=== PATIENT | female | born 1930 | race Caucasian/White ===

== ENCOUNTER 2018-03-27 22:59 | Outpatient (CLI) | payer MEDICARE, OTHER | END 2018-03-27 23:00 | disposition critical access hospital (66) | LOC: EMS 22:59 | PROVIDERS: ATTEND Surgery | DX: R46.4 Slowness and poor responsiveness (principal); R53.1 Weakness; R53.83 Other fatigue; R03.1 Nonspecific low blood-pressure reading | CPT/HCPCS: A0425; A0427 ==

== ENCOUNTER 2018-03-27 23:21 | Emergency (ER) | payer MEDICARE, OTHER ==
--- NOTE | 2018-03-27 23:50 | ED Physician Documentation ---
History of Present Illness - Stated complaint Stated Complaint: POSS SEPSIS, CHF - Chief complaint Chief Complaint: General - History obtained from History obtained from: Family, Other (patient cannot contribute to HPI/ROS due to AMS) - History of Present Illness Timing: Today Pain level now: 0 Improved by: no ameliorating factors Worsened by: no exacerbating factors Associated symptoms: AMS, cough - Additonal information Additional information: patient is visiting family on [place] (patient lives in [place]), has been here for 1 week. Family provides HPI (patient's daughter and her son-in-law); they say that patient had been in her usual state of health (AAOx3 and ambulatory with walker and occasionally with further assistance from them) until morning of 03/27, approximately 10 AM, when patient was c/o fatigue and wanted to lie down and take a nap. Family says this is unusual for patient. Patient slept through most of the day and tonight family noticed that patient seemed lethargic, difficult to wake. They also note that she has been coughing since this afternoon. Review of Systems Unable to obtain: Other (limited to information family can provide due to AMS) Constitutional: reports: Fever (temperature at home this evening was between 102 -103 (family cannot recall specifically)), Fatigue Respiratory: reports: Cough GI: denies: Vomiting Neurologic: reports: Generalized weakness, Altered mental status PD PAST MEDICAL HISTORY - Past Medical History Past Medical History: Yes Cardiovascular: Congestive heart failure, Hypertension, Deep vein thrombosis Respiratory: COPD, Pneumonia Neuro: TIA : Incontinence Musculoskeletal: Fatigue, Chronic back pain - Past Surgical History Past Surgical History: Yes General: Appendectomy Ortho: Spine surgery - Present Medications Home Medications: Ambulatory Orders Medication Instructions Recorded Confirmed Albuterol 2 puffs INH Q4H PRN 03/28/18 Ascorbic Acid [Vitamin C] 500 mg PO DAILY 03/28/18 Calcium Carbonate/Vitamin D3 600 mg PO DAILY 03/28/18 [Calcium 600-Vit D3 400 Tablet] Diltiazem HCl [Diltiazem 12Hr ER] 100 mg PO DAILY 03/28/18 Doxepin [SINEquan] 50 mg PO DAILY 03/28/18 Furosemide [Lasix] 40 mg PO DAILY 03/28/18 Gabapentin 7 cap PO DAILY 03/28/18 Potassium Chloride 10 meq PO DAILY 03/28/18 Rivaroxaban [Xarelto] 20 mg PO DAILY 03/28/18 traZODone [Desyrel] 50 mg PO Q6HR PRN 03/28/18 - Allergies Allergies/Adverse Reactions: Allergies Allergy/AdvReac Type Severity Reaction Status Date / Time No Known Drug Allergies Allergy Verified 03/27/18 23:31 - Social History Does the pt smoke?: No Smoking Status: Never smoker Does the pt drink ETOH?: No Does the pt have substance abuse?: No - Immunizations Immunizations are current?: Yes Immunizations: TDAP >10years/unknown - POLST Patient has POLST: No PD ED PE NORMAL - Vitals Vital signs reviewed: Yes - General General: No acute distress, Well developed/nourished - HEENT HEENT: PERRL, EOMI, Other (dry mucous membranes) - Neck Neck: Supple, no meningeal sign - Cardiac Cardiac: No murmur - Respiratory Respiratory: No respiratory distress - Abdomen Abdomen: Soft, Non tender, Non distended - Derm Derm: Normal color, Warm and dry - Neuro Eye Opening: To Voice (briefly opens eyes with repeated verbal stimuli) Motor: Obeys Commands Verbal: Oriented (quietly but accurately answers orientation questions) GCS Score: 14 PD ED PE EXPANDED - General General: Lethargic - Cardiac Cardiac: Tachy, Irregularly irregular - Respiratory Respiratory: Rhonchi (R>L, mid/lower lung brody), Decreased breath sounds ( right base). No: Wheezing - Extremities Extremities: Pedal edema bilateral (trace bipedal) Results - Vitals Vitals: Vital Signs - 24 hr 03/27/18 03/27/18 03/28/18 23:22 23:44 00:21 Temperature 37.7 C H Heart Rate 132 H 135 H 125 H Respiratory 12 30 H 29 H Rate Blood Pressure 100/65 89/60 L 93/66 O2 Saturation 94 95 96 03/28/18 03/28/18 03/28/18 00:27 01:02 01:36 Temperature Heart Rate 127 H 115 H 109 H Respiratory 20 25 H 30 H Rate Blood Pressure 97/65 91/60 97/65 O2 Saturation 97 98 95 03/28/18 03/28/18 03/28/18 02:01 02:34 03:04 Temperature 36.5 C Heart Rate 99 99 105 H Respiratory 30 H 29 H 21 Rate Blood Pressure 91/56 L 96/64 92/58 L O2 Saturation 91 L 95 90 L 03/28/18 03/28/18 03/28/18 03:05 03:32 03:48 Temperature Heart Rate 105 H 100 95 Respiratory 34 H 34 H 34 H Rate Blood Pressure 92/58 L 99/64 95/59 L O2 Saturation 93 95 92 Oxygen O2 Source Nasal cannula Oxygen Flow Rate 4 - EKG (time done) No standard instances Rate: Tachy (137) Rhythm: Atrial fibrillation Reading: Normal QRS: Normal Ischemia: Normal ST segments - Labs Labs: Laboratory Tests 03/27/18 03/27/18 03/27/18 23:55 23:55 23:55 WBC 14.4 H RBC 4.08 L Hgb 13.6 Hct 40.9 MCV 100.3 H MCH 33.4 H MCHC 33.3 RDW 17.4 H Plt Count 156 MPV 8.9 Neut # 12.9 H Lymph # 0.7 L Beckham # 0.7 Eos # 0.0 Baso # 0.1 Absolute Nucleated RBC 0.00 Nucleated RBC % 0.0 PT 25.4 H INR 2.3 H APTT 32.1 Bld Gas Analysis Time Sample Site ABG pH ABG pCO2 ABG pO2 ABG HCO3 ABG Total CO2 ABG O2 Saturation ABG Base Excess Harsha Test O2 Delivery Device O2 Liters/Min Sodium 139 Potassium 4.4 Chloride 103 Carbon Dioxide 28 Anion Gap 8.0 BUN 19 Creatinine 1.3 H Estimated GFR (MDRD) 39 L Glucose 127 H Lactic Acid Calcium 8.7 Total Bilirubin 0.9 AST 21 ALT 10 Alkaline Phosphatase 108 Troponin I B-Natriuretic Peptide Total Protein 6.9 Albumin 3.5 Globulin 3.4 Albumin/Globulin Ratio 1.0 Lipase 13 L Urine Color Urine Clarity Urine pH Ur Specific Bishop Urine Protein Urine Glucose (UA) Urine Ketones Urine Occult Blood Urine Nitrite Urine Bilirubin Urine Urobilinogen Ur Leukocyte Esterase Ur Microscopic Review Urine Culture Comments 03/27/18 03/27/18 03/28/18 23:55 23:55 00:01 WBC RBC Hgb Hct MCV MCH MCHC RDW Plt Count MPV Neut # Lymph # Beckham # Eos # Baso # Absolute Nucleated RBC Nucleated RBC % PT INR APTT Bld Gas Analysis Time Sample Site ABG pH ABG pCO2 ABG pO2 ABG HCO3 ABG Total CO2 ABG O2 Saturation ABG Base Excess Harsha Test O2 Delivery Device O2 Liters/Min Sodium Potassium Chloride Carbon Dioxide Anion Gap BUN Creatinine Estimated GFR (MDRD) Glucose Lactic Acid 2.4 H Calcium Total Bilirubin AST ALT Alkaline Phosphatase Troponin I < 0.04 B-Natriuretic Peptide 267 H Total Protein Albumin Globulin Albumin/Globulin Ratio Lipase Urine Color Urine Clarity Urine pH Ur Specific Bishop Urine Protein Urine Glucose (UA) Urine Ketones Urine Occult Blood Urine Nitrite Urine Bilirubin Urine Urobilinogen Ur Leukocyte Esterase Ur Microscopic Review Urine Culture Comments 03/28/18 03/28/18 00:18 02:13 WBC RBC Hgb Hct MCV MCH MCHC RDW Plt Count MPV Neut # Lymph # Beckham # Eos # Baso # Absolute Nucleated RBC Nucleated RBC % PT INR APTT Bld Gas Analysis Time 0213 Sample Site RIGHT RADIAL ABG pH 7.40 ABG pCO2 44 ABG pO2 59 L ABG HCO3 26.6 H ABG Total CO2 28.0 ABG O2 Saturation 90 L ABG Base Excess 1.6 Harsha Test POSITIVE O2 Delivery Device NASAL CANNULA O2 Liters/Min 4.00 Sodium Potassium Chloride Carbon Dioxide Anion Gap BUN Creatinine Estimated GFR (MDRD) Glucose Lactic Acid Calcium Total Bilirubin AST ALT Alkaline Phosphatase Troponin I B-Natriuretic Peptide Total Protein Albumin Globulin Albumin/Globulin Ratio Lipase Urine Color YELLOW Urine Clarity CLEAR Urine pH 5.5 Ur Specific Bishop 1.020 Urine Protein NEGATIVE Urine Glucose (UA) NEGATIVE Urine Ketones NEGATIVE Urine Occult Blood NEGATIVE Urine Nitrite NEGATIVE Urine Bilirubin NEGATIVE Urine Urobilinogen 0.2 (NORMAL) Ur Leukocyte Esterase NEGATIVE Ur Microscopic Review NOT INDICATED Urine Culture Comments NOT INDICATED - Rads (name of study) chest xray Radiology: Prelim report reviewed, See rad report PD MEDICAL DECISION MAKING - ED course Complexity details: reviewed results, re-evaluated patient, considered differential, d/w family ED course: CXR s/o pneumonia. also noted are leukocytosis, lactate 2.4, INR 2.3 ( medication list provided by family indicates patient takes xarelto and not warfarin), and normal UA. creatinine 1.3 with normal BUN. Patient was hypoxic in field; EMS report patient had mid-70s pulse ox on room air. However, she improved to, and maintained, low/mid 90s pulse ox with 4 liters NC oxygen in field and during ED stay. Patient's SBP was mostly in low/mid 90s with a few (consecutive) readings in upper 80s SBP although this improved with IV fluids. Her MAP did not fall below 68 and mostly was in the low/mid 70s. She remained lethargic during ED stay but did not present with, nor developed, lateralizing neurologic findings. There are no ICU beds available at [facility]. Patient's family's preference for transfer would be to [place]. Unfortunately, they also have no ICU beds available. Family's next preference is [facility]. I discussed the case with Dr. Valerio, who requests ABG and Troponin; these were performed and results subsequently discussed. Dr. Valerio accepts patient for transfer. Given Vancomycin and Zosyn in ED. Departure - Departure Disposition: 02 Transfer Acute Care Hosp Clinical Impression: Pneumonia Qualifiers: Pneumonia type: due to unspecified organism Laterality: right Lung location: unspecified part of lung Qualified Code(s): J18.9 - Pneumonia, unspecified organism Condition: Stable Discharge Date/Time: 03/28/18 04:00
[2018-03-27 23:59] LABS: BASOPHILS # (AUTO) 0.1 10^3/uL (0.0-0.1); BASOPHILS % (AUTO) 0.4 %; HGB - HEMOGLOBIN 13.6 g/dL (12.0-16.0); LYMPHOCYTES # (AUTO) 0.7 10^3/uL (1.5-3.5); LYMPHOCYTES % (AUTO) 5.1 %; MEAN CORPUSCULAR HEMOGLOBIN 33.4 pg (27.0-31.0); MEAN CORPUSCULAR HGB CONC 33.3 g/dL (32.0-36.0); MEAN CORPUSCULAR VOLUME 100.3 fL (81.0-99.0); MEAN PLATELET VOLUME 8.9 fL (7.9-10.8); MONOCYTES # (AUTO) 0.7 10^3/uL (0.0-1.0); NEUTROPHILS # (AUTO) 12.9 10^3/uL (1.5-6.6); NEUTROPHILS % (AUTO) 89.5 %; PLT - PLATELET COUNT 156 10^3/uL (130-450); RED BLOOD COUNT 4.08 10^6/uL (4.20-5.40); RED CELL DISTRIBUTION WIDTH 17.4 % (12.0-15.0); WHITE BLOOD COUNT 14.4 x10^3/uL (4.8-10.8)
[2018-03-28 00:05] LABS: INR 2.3 (0.8-1.2); PT - PROTHROMBIN TIME 25.4 secs (9.9-12.6)
[2018-03-28] MEDS ORDERED: SODIUM CHLORIDE 0.9% 500 ML IV STA (00:09)
[2018-03-28 00:14] LABS: ALBUMIN 3.5 g/dL (3.2-5.5); BILIRUBIN,TOTAL 0.9 mg/dL (0.2-1.0); CALCIUM 8.7 mg/dL (8.5-10.3); CREATININE 1.3 mg/dL (0.4-1.0); TOTAL PROTEIN 6.9 g/dL (6.7-8.2)
[2018-03-28] MEDS ORDERED: VANCOMYCIN INJ 1 GM in SODIUM CHLORIDE 0.9% 500 ML IV STA (00:17)
[2018-03-28] MEDS ORDERED: PIPERACILLIN/TAZOBACTAM 3.375 GM in SODIUM CHLORIDE 0.9% MINIBAG 100 ML IV STA (00:17)
[2018-03-28 00:22] LABS: BILIRUBIN,URINE NEGATIVE (NEGATIVE); GLUCOSE, URINE (UA) NEGATIVE (NEGATIVE); KETONES,URINE (UA) NEGATIVE (NEGATIVE); LEUKOCYTE ESTERASE, URINE NEGATIVE (NEGATIVE); NITRITE,URINE NEGATIVE (NEGATIVE); OCCULT BLOOD,URINE NEGATIVE (NEGATIVE); PH,URINE 5.5 PH (5.0-7.5); PROTEIN,URINE NEGATIVE (NEGATIVE); UROBILINOGEN,URINE 0.2 (NORMAL) E.U./dL (NORMAL)
[2018-03-28 00:28] LABS: CLARITY,URINE CLEAR (CLEAR)
--- NOTE | 2018-03-28 00:31 | XRAY Preliminary Report ---
Exam: XR CHEST 1 VIEW X-RAY IMPRESSION: 1. Dense right lung base opacity probably reflects mostly right middle and lower lobe collapse given right hemithorax volume loss. Central obstructing mass and post obstructive pneumonia could be consid ered. 2. Left perihilar somewhat masslike opacity of uncertain chronicity. Malignancy not excluded in the r egion. 3. Suspect layering effusions. 4. Comparison with previous imaging and/or chest CT imaging would be quite useful in this patient if clinically indicated. [facility] SITE ID: [id number]
[2018-03-28] MEDS ORDERED: VANCOMYCIN 1 GM VIAL ONE (00:34)
--- NOTE | 2018-03-28 00:37 | XRAY Report ---
EXAM: CHEST RADIOGRAPHY EXAM DATE: 03/28/2018 12:08 AM. CLINICAL HISTORY: Weakness, hypotension. COMPARISON: None. TECHNIQUE: 1 view. FINDINGS: Lungs/Pleura: Large right mid to lower lung zone airspace opacity with probable adjacent small effusi on. Right hemithorax volume loss. Dense left perihilar opacities with mass not excluded. There may be a layering left effusion as well. No gross pneumothorax. Mediastinum: Significant mediastinal shift to the right. Heart is obscured. Other: Previous spinal surgery. IMPRESSION: 1. Dense right lung base opacity probably reflects mostly right middle and lower lobe collapse given right hemithorax volume loss. Central obstructing mass and postobstructive pneumonia could be conside red. 2. Left perihilar somewhat masslike opacity of uncertain chronicity. Malignancy not excluded in the r egion. 3. Suspect layering effusions. 4. Comparison with previous imaging and/or chest CT imaging would be quite useful in this patient if clinically indicated. [facility] Referring Provider Line: [phone] SITE ID: [id number]
[2018-03-28 02:56] LABS: ABG BASE EXCESS 1.6 mmol/L (-2.0-3.0); ABG HCO3 26.6 mmol/L (22.0-26.0); ABG OXYGEN SATURATION 90 % (94-98); ABG PCO2 44 mmHg (34-45); ABG PO2 59 mmHg (80-100); ALLEN TEST POSITIVE
[2018-03-28 04:08] VITALS: BP 95/59
== END 2018-03-28 04:00 | disposition short-term general hospital (02) ==
LOC: ED 23:21
DX: J18.9 Pneumonia, unspecified organism (principal); D72.829 Elevated white blood cell count, unspecified; I11.0 Hypertensive heart disease with heart failure; I50.9 Heart failure, unspecified; I48.91 Unspecified atrial fibrillation; Z86.718 Personal history of other venous thrombosis and embolism; Z79.01 Long term (current) use of anticoagulants; Z86.73 Personal history of transient ischemic attack (TIA), and cerebral infarction without residual deficits
CPT/HCPCS: 36415; 36600; 51703; 71045; 80053; 81003; 82803; 83605; 83690; 83880; 84484; 85025; 85610; 85730; 87040; 93005; 96365; 96368; 99284; 99285; J3370; 81001; 87086

== ENCOUNTER 2018-03-28 04:07 | Outpatient (CLI) | payer MEDICARE, OTHER | END 2018-03-28 04:08 | disposition short-term general hospital (02) | LOC: EMS 04:07 | PROVIDERS: ATTEND Surgery | DX: R06.02 Shortness of breath (principal); R53.83 Other fatigue | CPT/HCPCS: A0425; A0426 ==